=== PATIENT | female | born 1945 | race Caucasian/White ===

== ENCOUNTER 2017-09-03 21:26 | Emergency (ER) | payer MEDICARE ==
[~2017-09-03] VITALS: Ht 165.1 cm; Wt 80.0 kg
[2017-09-03 21:32] VITALS: BP 142/67; PULSE 63; RESP 16; O2SAT 96
--- NOTE | 2017-09-03 22:13 | RADRPT ---
EXAM DATE/TIME: 09/03/2017 21:47 [facility] COMPARISON: No previous studies available for comparison. INDICATIONS : Trauma; fall; posterior laceration. RADIATION DOSE: 56.35 CTDIvol (mGy) MEDICAL HISTORY : Stroke. SURGICAL HISTORY : None. ENCOUNTER: Initial ACUITY: 1 day PAIN SCALE: 5/10 LOCATION: cranial TECHNIQUE: Multiple contiguous axial images were obtained of the head. Using automated exposure control and adj ustment of the mA and/or kV according to patient size, radiation dose was kept as low as reasonably a chievable to obtain optimal diagnostic quality images. DICOM format image data is available electro nically for review and comparison. FINDINGS: There is no evidence for intracranial hemorrhage, mass effect, mass lesions, edema, or extra-axial fl uid collections. The visualized bony structures appear intact. There are no signs of acute infarcti on for technique. There is a large area of encephalomalacia in the right frontal parietal and parts o f the temporal lobe with slight dilatation of the right lateral horn. 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 Harriett Izaguirre MD on September 03, 2017 at 22:10 Board Certified Radiologist. This report was verified electronically.
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
--- NOTE | 2017-09-03 23:57 | RADRPT ---
EXAM DATE/TIME: 09/03/2017 23:32 [facility] COMPARISON: No previous studies available for comparison. INDICATIONS : Left ankle pain post fall today MEDICAL HISTORY : None. SURGICAL HISTORY : None. ENCOUNTER: Initial ACUITY: 1 day PAIN SCORE: 5/10 LOCATION: Left entire ankle FINDINGS: Three view exam was performed of the left ankle. The bony structures are in normal alignment. No ev idence of fracture, dislocation, or soft tissue swelling. The ankle mortise is intact. No radiopaqu e foreign bodies are seen. Bony mineralization is reduced. CONCLUSION: 1. Osteopenia. 2. No fracture or dislocation. Casey Quiñones Jr., MD on September 03, 2017 at 23:55 Board Certified Radiologist. This report was verified electronically.
[2017-09-04 00:02] VITALS: BP 146/86; PULSE 62; RESP 14; O2SAT 96
== END 2017-09-04 00:51 | disposition home or self-care (01) ==
LOC: NEPE 21:26
DX: S00.01XA Abrasion of scalp, initial encounter (principal); S96.912A Strain of unspecified muscle and tendon at ankle and foot level, left foot, initial encounter; V00.811A Fall from moving wheelchair (powered), initial encounter; I10 Essential (primary) hypertension; I48.91 Unspecified atrial fibrillation; E05.00 Thyrotoxicosis with diffuse goiter without thyrotoxic crisis or storm; Z86.73 Personal history of transient ischemic attack (TIA), and cerebral infarction without residual deficits; Z79.01 Long term (current) use of anticoagulants; Z87.891 Personal history of nicotine dependence
CPT/HCPCS: 70450; 73610; 99284